=== PATIENT | female | born 1990 | race Caucasian/White ===

== ENCOUNTER 2018-03-31 15:04 | Observation (INO) | payer OTHER ==
[~2018-03-31] VITALS: Ht 160 cm; Wt 93.7 kg
[2018-03-31] MEDS ORDERED: MORPHINE 4 MG/ML 1ML VIAL/SYRINGE (J2270) IV PRN (15:30)
[2018-03-31 16:05] VITALS: BP 112/79
[2018-03-31] MEDS: metroNIDAZOLE 500 MG in APPROPRIATE DILUENT 1 EA IV SCH (18:25)
[2018-03-31] MEDS: NS 1,000 ML IV SCH (18:25)
[2018-03-31] MEDS ORDERED: ONDANSETRON 4MG/2ML VIAL (J2405) IV PRN (18:45)
[2018-03-31 22:00] VITALS: BP 112/76
[2018-04-01] MEDS ORDERED: CIPROFLOXACIN 400 MG in APPROPRIATE DILUENT 1 EA IV SCH ×2
[2018-04-01] MEDS: metroNIDAZOLE 500 MG in APPROPRIATE DILUENT 1 EA IV SCH ×2 (02:41→09:48)
[2018-04-01] MEDS: NS 1,000 ML IV SCH ×2 (02:41→06:20)
[2018-04-01 06:00] VITALS: BP 113/71
[2018-04-01 06:06] LABS: BASO % 0.5 % (0.0-1.0); EOS % 0.5 % (0.0-3.0); HEMATOCRIT 34.9 % (36.0-47.0); HEMOGLOBIN 11.6 g/dl (12.0-15.5); LYMPH # 1.3 10^3/uL (1.5-6.5); MEAN CORPUSCULAR HEMOGLOBIN 30.3 pg (27.0-33.0); MEAN CORPUSCULAR HGB CONC 33.2 g/dl (32.0-36.5); MEAN CORPUSCULAR VOLUME 91.1 fl (80.0-96.0); MONO # 0.6 10^3/uL (0.0-0.8); MONO % 10.5 % (0.0-5.0); NEUTROPHILS # 4.1 10^3/uL (1.8-7.7); NEUTROPHILS % 67.2 % (36.0-66.0); PLATELET COUNT, AUTOMATED 167 10^3/uL (150-450); RED BLOOD COUNT 3.83 10^6/uL (4.00-5.40); WHITE BLOOD COUNT 6.1 10^3/uL (4.0-10.0)
[2018-04-01 06:33] LABS: BLOOD UREA NITROGEN 4 MG/DL (7-18); CALCIUM LEVEL 7.4 MG/DL (8.5-10.1); CARBON DIOXIDE LEVEL 23 MEQ/L (21-32); CHLORIDE LEVEL 110 MEQ/L (98-107); CREATININE FOR GFR 0.57 MG/DL (0.55-1.30); GLOMERULAR FILTRATION RATE > 60.0 (>60); GLUCOSE, FASTING 84 MG/DL (70-100); POTASSIUM SERUM 3.3 MEQ/L (3.5-5.1); SODIUM LEVEL 139 MEQ/L (136-145)
[2018-04-01 07:47] LABS: C REACTIVE PROTEIN QUANTITATIV 7.48 MG/DL (0.00-0.30); MAGNESIUM LEVEL 1.7 MG/DL (1.8-2.4)
[2018-04-01] MEDS ORDERED: POTASSIUM CHLORIDE 10 MEQ SR TABLET PO ONE (08:00)
[2018-04-01] MEDS ORDERED: INFLUENZA QUADRIVALENT PF VACCINE 0.5ML SYRINGE (90686) IM ONE (09:00)
--- NOTE | 2018-04-01 10:14 | HPE ---
DATE OF ADMISSION: 03/31/2018 This is a 27-year-old female with no significant past medical history who presents to the emergency room in [place] with chief complaint of diarrhea that has been going on for approximately 24 hours. She had a dental procedure done one week ago today and was given antibiotics, she does not know the name of, for which she completed a five day course. She states that she had multiple bouts of watery diarrhea and left upper quadrant abdominal pain with this and there was nausea but no vomiting, so she came to [place] for evaluation. In [place], she was given a total of 2 liters of normal saline and started on a third bag. She was still tachycardic, but blood pressure remained stable. CT of the abdomen and pelvis showed acute colitis of the transverse and descending colon. The patient was started on IV Cipro and Flagyl and was brought to our emergency room for further care. At this time, she is pain free and is currently receiving her third bag of normal saline. She will be admitted for further management. PAST MEDICAL HISTORY: No past medical history. SURGICAL HISTORY: section. ALLERGIES: SULFA medication, LIDOCAINE. FAMILY HISTORY: Noncontributory. SOCIAL HISTORY: The patient denies tobacco, alcohol or illicit drugs. She takes no medications at home. REVIEW OF SYSTEMS: Negative for all ten major systems except what is mentioned in the history of present illness. VITAL SIGNS: Blood pressure 112/79, heart rate 150 and regular, respiratory rate 18, temperature 99.8, oxygen saturation 92% on room air. Head is atraumatic, normocephalic. Neck is supple with no jugular venous distention (JVD). Lungs are clear to auscultation. S1, S2 audible. No murmurs appreciated. Abdomen is soft. Positive tenderness on deep palpation of the left upper quadrant. No rebound. Positive bowel sounds. No pedal edema. Skin intact. Neurologic examination, the patient is awake, alert and oriented times three. LABORATORIES: From [place]: WBC 15.5, hemoglobin 14.1, hematocrit 41.6, platelets are 255,000. Sodium 141, potassium 3.7, chloride 105, BUN 8, creatinine 0.6. AST 31, ALT 66. IMPRESSION: 1. Acute colitis. PLAN: The patient will be admitted to the medical/surgical floor. We will start the patient on 2 mg of morphine IV every 4 hours as needed for pain and Zofran 4 mg IV every 4 hours as needed for nausea. We will continue IV Cipro and Flagyl and keep her on contact precautions until a GI panel is back and she is ruled out for Clostridium (C.) difficile colitis. We will continue IV fluids with normal saline at 150 mL an hour and continue her care on the medical/surgical floor.
[2018-04-01] MEDS ORDERED: FLAG500T PO (11:47)
[2018-04-01] MEDS ORDERED: CIPR-249 PO (11:47)
--- NOTE | 2018-04-01 15:59 | DS.PDOC ---
Discharge Summary General Date of Admission Mar 31, 2018 at 16:18 Date of Discharge 04/01/18 Primary Care Physician: Matthew Montana MD [facility] Discharge Summary PROCEDURES PERFORMED DURING STAY: None. ADMITTING DIAGNOSES/ DISCHARGE DIAGNOSES: 1. Acute Colitis COMPLICATIONS/CHIEF COMPLAINT: Colitis. HISTORY OF PRESENT ILLNES/ HOSPITAL COURSE: This is a 27-year-old female who presented to the emergency room in [place] with chief complaint of diarrhea for 24 hours. She has a pertinent past medical history of a recent dental procedure done one week prior to presentation and she was given 50day course antibiotics s/p but she is unsure what it was. She admitted to nausea, multiple bouts of watery diarrhea and left upper quadrant abdominal pain. So she proceeded to go to the ER for further evaluation. In [place], she was given a total of 2-3 liters of normal saline. Her vitals were pertinent positive for tachycardia, with normal BP. remained stable. CT of the abdomen and pelvis showed acute colitis of the transverse and descending colon. She was IV Cipro and Flagyl and was transferred to [facility] for further care. While admitted she continued with IV fluids and IV antibiotics. Her symptoms improved but is experiencing watery diarrhea but it is not as severe and frequent. Her abdominal discomfort improved without any analgesic. GI panel was negative on the day of discharge. The patient requested because her symptoms and she is stable that she be discharged. She was discharged with Cipro and Flagyl PO script for 5 days and to follow up with her pcp in 7-10 days, DISCHARGE MEDICATIONS: Please see below. ALLERGIES: Please see below. PHYSICAL EXAMINATION ON DISCHARGE: VITAL SIGNS: Please see below. GENERAL: Pleasant 27 year old female in no acute distress appropriate answering questions. HEENT: is atraumatic, normocephalic, EOMI, moist mucous membrane. CARDIOVASCULAR EXAMINATION: regular rate and rhythm. RESPIRATORY EXAMINATION: CTA-B NO W/R/R/ ABDOMINAL EXAMINATION: Positive bowl in all 4 quadrants. No tenderness on palpation. EXTREMITIES: No LE edema. LABORATORY DATA: Please see below. IMAGING: No imaging done at [facility]. PROGNOSIS: Fair. ACTIVITY: As tolerated. DIET: As tolerated to regular diet DISPOSITION: 01 Home, Self-Care. DISCHARGE INSTRUCTIONS: 1. Follow up with pcp in 7-10 days. 2. Complete antibiotics as prescribed. 3. Daily Over-the counter Probiotics (gummies, tablets or yogurt) will help promote good gut baljit. 4. If symptoms worsen or return please call your pcp or return to the ER. DISCHARGE CONDITION: Stable. TIME SPENT ON DISCHARGE: Greater than 35 minutes. Vital Signs/I&Os Vital Signs Date Time Temp Pulse Resp B/P (MAP) Pulse Ox O2 Delivery O2 Flow Rate FiO2 04/01/18 06:00 99.1 99 18 113/71 (85) 97 Room Air I&O- Last 24 Hours up to 6 AM 04/01/18 06:00 Intake Total 2300 ml Output Total 1100 ml Balance 1200 ml Laboratory Data Labs 24H Laboratory Tests 2 04/01/18 05:31: Immature Granulocyte % (Auto) 0.3, White Blood Count 6.1, Red Blood Count 3.83L, Hemoglobin 11.6L, Hematocrit 34.9L, Mean Corpuscular Volume 91.1, Mean Corpuscular Hemoglobin 30.3, Mean Corpuscular Hemoglobin Concent 33.2, Red Cell Distribution Width 12.4, Platelet Count 167, Neutrophils (%) (Auto) 67.2H, Lymphocytes (%) (Auto) 21.0L, Monocytes (%) (Auto) 10.5H, Eosinophils (%) (Auto) 0.5, Basophils (%) (Auto) 0.5, Neutrophils # (Auto) 4.1, Lymphocytes # (Auto) 1.3L, Monocytes # (Auto) 0.6, Eosinophils # (Auto) 0.0, Basophils # (Auto) 0.0, Nucleated Red Blood Cells % (auto) 0.0, Anion Gap 6L, Glomerular Filtration Rate > 60.0, Blood Urea Nitrogen 4L, Creatinine 0.57, Sodium Level 139, Potassium Level 3.3L, Chloride Level 110H, Carbon Dioxide Level 23, Calcium Level 7.4L, Magnesium Level 1.7L, C-Reactive Protein, Quantitative 7.48H CBC/BMP Laboratory Tests 04/01/18 05:31 Red Blood Count 3.83 L, Mean Corpuscular Volume 91.1, Mean Corpuscular Hem oglobin 30.3, Mean Corpuscular Hemoglobin Concent 33.2, Red Cell Distribution Width 12.4, Neutrophils (%) (Auto) 67.2 H, Lymphocytes (%) (Auto) 21.0 L, Monocytes (%) (Auto) 10.5 H, Eosinophils (%) (Auto) 0.5, Basophils (%) (Auto) 0.5, Neutrophils # (Auto) 4.1, Lymphocytes # (Auto) 1.3 L, Monocytes # (Auto) 0.6, Eosinophils # (Auto) 0.0, Basophils # (Auto) 0.0, Calcium Level 7.4 L Microbiology Microbiology 04/01/18 Blood Culture, Received Pending 04/01/18 Blood Culture, Received Pending 04/01/18 Gastrointestinal Tract Panel (PCR) - Final, Complete Discharge Medications Scheduled Ciprofloxacin HCl (Cipro) 500 Mg Tab, 1 TAB PO BID Metronidazole (Flagyl) 500 Mg Tab, 1 TAB PO BID Allergies Coded Allergies: Lidocaine (Verified Allergy, Severe, seizure, 03/31/18) Sulfa Antibiotics (Verified Adverse Reaction, Mild, vomiting, 03/31/18) GME ATTESTATION GME ATTESTATION My faculty preceptor for this patient encounter was physically present during the encounter and was fully available. All aspects of the patient interview, examination, medical decision making process, and medical care plan development were reviewed and approved by the faculty preceptor. The faculty preceptor is aware and concurs with the plan as stated in the body of this note and will attest to such by his/her cosignature. ATTENDING NOTE I have both independently examined this patient as well as reviewed the note I have discussed in detail the findings and plan of treatment as documented in the note. I will continue to follow the patient and offer further guidance to the patients care as necessary during this hospital stay. KYLE Bernstein MD, DO Apr 01, 2018 15:59 SHADY BELTRAN MD Apr 01, 2018 19:01
== END 2018-04-01 12:45 | disposition home or self-care (01) ==
LOC: M MS5PR 16:18 → INTOOBSV 16:18
PROVIDERS: ADMIT Internal Medicine; ATTEND Internal Medicine
DX: K52.9 Noninfective gastroenteritis and colitis, unspecified (principal)
CPT/HCPCS: 36415; 80048; 83735; 85025; 86140; 87040; 87507; 90471; 90686; 96374; 96375; 96376; J0744

== ENCOUNTER → 2018-07-31 | Outpatient (CLI) | payer OTHER ==
[~2018-07-31] MED LIST: CIPR-249 PO; FLAG500T PO
--- NOTE | 2018-07-31 12:23 | REP ---
CT IACS WITHOUT CONTRAST: HISTORY: Hearing loss. The internal auditory canals, cochlea, vestibules, and semicircular canals are normal in appearance. There is no carotid canal or jugular bulb dehiscence. The ossicles are normal in configuration and position. The scutum are intact. There are areas of dehiscence in the tegmen bilaterally. The middle ear cavities and mastoid air cells are clear. Minimal mucosal thickening is present in the maxillary, left ethmoid, and right sphenoid sinuses. The nasopharynx is normal in appearance. IMPRESSION: Normal CT IACs. Electronically Signed by Eber Shook MD 07/31/2018 12:28 P
== END ==
LOC: M RAD 09:14
PROVIDERS: ATTEND Physician Assistant Medical
DX: H92.11 Otorrhea, right ear (principal)

== ENCOUNTER 2018-09-09 22:28 | Emergency (ER) | payer OTHER ==
[~2018-09-09] VITALS: Ht 160 cm; Wt 79.5 kg
[2018-09-09] MEDS ORDERED: NS 1,000 ML IV ONE (23:00)
[2018-09-09 23:01] LABS: BASO # 0.1 10^3/uL (0.0-0.2); BASO % 0.5 % (0.0-1.0); EOS % 0.3 % (0.0-3.0); HEMATOCRIT 42.7 % (36.0-47.0); HEMOGLOBIN 14.4 g/dl (12.0-15.5); LYMPH # 1.7 10^3/uL (1.5-6.5); LYMPH % 12.6 % (24.0-44.0); MEAN CORPUSCULAR HGB CONC 33.7 g/dl (32.0-36.5); MEAN CORPUSCULAR VOLUME 91.8 fl (80.0-96.0); MONO % 7.3 % (0.0-5.0); NEUTROPHILS # 10.6 10^3/uL (1.8-7.7); NEUTROPHILS % 78.9 % (36.0-66.0); PLATELET COUNT, AUTOMATED 250 10^3/uL (150-450); RED BLOOD COUNT 4.65 10^6/uL (4.00-5.40); WHITE BLOOD COUNT 13.5 10^3/uL (4.0-10.0)
[2018-09-09 23:26] LABS: ALT/SGPT 72 U/L (12-78); BILIRUBIN,DIRECT 0.1 MG/DL (0.0-0.2); BILIRUBIN,TOTAL 0.6 MG/DL (0.2-1.0); BLOOD UREA NITROGEN 12 MG/DL (7-18); C REACTIVE PROTEIN QUANTITATIV 0.92 MG/DL (0.00-0.30); CALCIUM LEVEL 9.2 MG/DL (8.5-10.1); CARBON DIOXIDE LEVEL 30 MEQ/L (21-32); CHLORIDE LEVEL 101 MEQ/L (98-107); CREATININE FOR GFR 0.93 MG/DL (0.55-1.30); GLOMERULAR FILTRATION RATE > 60.0 (>60); GLUCOSE, FASTING 92 MG/DL (70-100); POTASSIUM SERUM 3.9 MEQ/L (3.5-5.1); SODIUM LEVEL 136 MEQ/L (136-145); TOTAL PROTEIN 8.5 GM/DL (6.4-8.2)
[2018-09-09] MEDS ORDERED: KETOROLAC 30 MG/ML VIAL (J1885) IV ONE (23:30)
[2018-09-10 00:22] LABS: HCG, SERUM QUALITATIVE NEGATIVE (NEGATIVE)
[2018-09-10 02:00] VITALS: BP 123/58
--- NOTE | 2018-09-10 05:41 | ECGEPIP ---
[facility] - ED Test Date: 2018-09-09 Pat Name: MOR RIOS Department: Room: - Gender: Female [employer]: GABRIEL : 1990 Requested By: EVA Wagoner Order Number: [id number] Reading MD: Ajit Vasquez Measurements Intervals [place] Rate: 132 P: 33 MA: 163 QRS: 62 QRSD: 85 T: 30 QT: 369 QTc: 547 Interpretive Statements SINUS TACHYCARDIA POSSIBLE LEFT ATRIAL ENLARGEMENT NONSPECIFIC T-WAVE ABNORMALITY NO PRIORS FOR COMPARISON Electronically Signed on 09-10-2018 5:40:49 EDT by Ajit Vasquez
--- NOTE | 2018-09-10 07:40 | REP ---
Clinical: Cough. Systemic inflammatory response syndrome . Comparison: None . Technique: PA and lateral. Findings: The mediastinum and cardiac silhouette are normal. The lung zhou are clear and without acute consolidation, effusion, or pneumothorax. The skeletal structures are intact and normal. Impression: 1. No acute cardiopulmonary process. Electronically Signed by Lupillo Olsen MD 09/10/2018 07:31 A
[2018-09-12 08:58] LABS: Lyme Disease IgG Ab 18 kDa Ban Absent (.); Lyme Disease IgG Ab 23 kDa Ban Absent (.); Lyme Disease IgG Ab 28 kDa Ban Absent (.); Lyme Disease IgG Ab 30 kDa Ban Absent (.); Lyme Disease IgG Ab 39 kDa Ban Absent (.); Lyme Disease IgG Ab 41 kDa Ban Present (.); Lyme Disease IgG Ab 45 kDa Ban Absent (.); Lyme Disease IgG Ab 58 kDa Ban Absent (.); Lyme Disease IgG Ab 66 kDa Ban Absent (.); Lyme Disease IgG Ab 93 kDa Ban Absent (.); Lyme Disease IgG West Blot Int Negative (.); Lyme Disease IgG/IgM Antibodie <0.91 ISR (0.00-0.90); Lyme Disease IgM Ab 23 kDa Ban Present (.); Lyme Disease IgM Ab 39 kDa Ban Absent (.); Lyme Disease IgM Ab 41 kDa Ban Present (.); Lyme Disease IgM Ab Quantitati 1.14 index (0.00-0.79); Lyme Disease IgM West Blot Int Positive (.)
[2018-09-27] MEDS ORDERED: DOXY-350 PO (09:27)
== END 2018-09-10 02:19 | disposition home or self-care (01) ==
LOC: M ED 22:28
DX: R53.81 Other malaise (principal); R00.0 Tachycardia, unspecified
CPT/HCPCS: 71046; 80048; 80076; 81001; 83605; 84703; 85025; 86140; 86617; 87040; 93005; 93041; 94760; 96374; 99285; J1885

== ENCOUNTER 2018-10-03 08:02 | Day surgery (SDC) | payer OTHER ==
[~2018-10-03] VITALS: Ht 160 cm; Wt 88.5 kg
[~2018-10-03 08:02] MED LIST changes: +CIPRODEX OTIC SUSP 7.5ML As Ordered ONE; +DOXY-350 PO
[2018-10-03] MEDS ORDERED: LIDOCAINE 2% INJ 100 MG/5 ML SDV (FOR ANES.) As Ordered ONE (09:14)
[2018-10-03] MEDS ORDERED: PROPOFOL 200 MG/20 ML VIAL As Ordered ONE (09:14)
[2018-10-03] MEDS ORDERED: fentaNYL 100 MCG/2 ML INJECTION (J3010) As Ordered ONE (09:14)
[2018-10-03] MEDS ORDERED: MIDAZOLAM INJ 2 MG/2 ML VIAL (J2250) As Ordered ONE (09:15)
[2018-10-03 09:19] LABS: URINE PREG TEST NEGATIVE (NEGATIVE)
[2018-10-03] MEDS ORDERED: dexameTHASONE 4 MG/ML 1ML VIAL (J1100) As Ordered ONE (09:49)
[2018-10-03] MEDS ORDERED: ONDANSETRON 4MG/2ML VIAL (J2405) As Ordered ONE (09:49)
[2018-10-03] MEDS ORDERED: ePHEDrine SULFATE 25 MG/5 ML(5MG/ML) SYRINGE As Ordered ONE (09:50)
[2018-10-03] MEDS ORDERED: LR 1,000 ML IV SCH (10:30)
[2018-10-03] MEDS ORDERED: ONDANSETRON 4MG/2ML VIAL (J2405) IV PRN (10:30)
[2018-10-03] MEDS ORDERED: fentaNYL 100 MCG/2 ML INJECTION (J3010) IV PRN (10:30)
[2018-10-03 11:17] VITALS: BP 115/69
[2018-10-03] MEDS ORDERED: TRANEXAMIC ACID 100 MG/ML 10ML VIAL As Ordered ONE (13:07)
[2018-10-03] MEDS ORDERED: BUPIVACAINE LIPOSOME/PF 1.3% 20ML VIAL (13.3MG/ML)(EXPAREL)(C9290 PER1MG) As Ordered ONE (13:08)
[2018-10-03] MEDS ORDERED: ceFAZolin 1GM INJ (J0690 PER 500MG) As Ordered ONE (13:08)
[2018-10-03] MEDS ORDERED: EPINEPHrine INJ 1 MG/ML 1ML AMP As Ordered ONE (13:08)
== END 2018-10-03 11:50 | disposition home or self-care (01) ==
LOC: M SDC 08:02
PROVIDERS: ATTEND Otolaryngology
DX: H69.83 Other specified disorders of Eustachian tube, bilateral (principal); A69.20 Lyme disease, unspecified; Z79.899 Other long term (current) drug therapy; Z88.2 Allergy status to sulfonamides; Z88.4 Allergy status to anesthetic agent
CPT/HCPCS: 69436; 84703; J1100; J2250; J2405; J3010

== ENCOUNTER → 2020-01-16 | Outpatient (CLI) | payer OTHER ==
[~2020-01-16] MED LIST changes: -CIPRODEX OTIC SUSP 7.5ML As Ordered ONE
--- NOTE | 2020-01-16 10:35 | REP ---
INDICATION: Z31.9 INFERTILITY MANAGEMENT. COMPARISON: None. TECHNIQUE: Transabdominal and transvaginal scanning performed. FINDINGS: Uterine dimensions are normal at 6.9 x 3.6 x 5.1 cm. Endometrial echo is 2 mm thick and centrally placed. The bladder measures 5.9 x 6.5 x 8.4 cm. The right ovary has dimensions of 3.4 x 1.5 x 1.4 cm. It's Doppler flow is normal with resistive index 0.49 The left ovary dimensions are normal as well at 3.2 x 1.4 x 2.2 cm. It's Doppler flow is normal with resistive index 0.48 There is no adnexal mass identified. No free fluid is seen in the cul-de-sac. There are small nabothian cysts in the region of the cervix. IMPRESSION: Negative pelvic ultrasound. <Electronically signed by Matthew Hurley > 01/16/20 0429
== END ==
LOC: M WHC 09:17
PROVIDERS: ATTEND Nurse Practitioner Women's Health
DX: Z31.9 Encounter for procreative management, unspecified (principal); N88.8 Other specified noninflammatory disorders of cervix uteri

== ENCOUNTER → 2020-06-07 | Outpatient (REF) | payer OTHER | LOC: M LAB REF 14:49 | PROVIDERS: ATTEND Physician Assistant Medical | DX: H92.11 Otorrhea, right ear (principal) ==